=== PATIENT | female | born 1970 ===

== ENCOUNTER 2019-07-27 12:03 | Emergency (ER) | payer SELFPAY ==
[~2019-07-27] VITALS: Ht 154.9 cm; Wt 81.8 kg
[2019-07-27] MEDS ORDERED: METF-960 PO (12:11)
[2019-07-27 12:27] LABS: GLUCOSE,POINT OF CARE 405 MG/DL (70-110)
[2019-07-27] MEDS ORDERED: SODIUM CHLORIDE 0.9% 1,000 ML IV ONE (13:15)
[2019-07-27 13:55] LABS: ANION GAP 9 mmol/L (8-16); CARBON DIOXIDE 26 mmol/L (22-29); CHLORIDE 98 mmol/L (98-107); CREATININE 0.78 mg/dL (0.60-1.30); POTASSIUM 4.1 mmol/L (3.5-5.1); SODIUM SERUM 133 mmol/L (136-145); UREA NITROGEN, BLOOD 11 mg/dL (7-18)
[2019-07-27 13:56] LABS: CALCIUM, TOTAL 8.3 mg/dL (8.8-10.5); GLOMERULAR FILTR. RATE CALC > 60 mL/min (>60)
[2019-07-27 14:01] LABS: GLUCOSE,RANDOM 437 mg/dL (70-110)
[2019-07-27] MEDS ORDERED: KETOROLAC TROMETHAMINE 30 MG/ML VIAL IVP ONE (14:15)
[2019-07-27] MEDS ORDERED: ONDANSETRON HCL 4 MG/2 ML VIAL IVP ONE (14:15)
[2019-07-27] MEDS ORDERED: INSULIN REGULAR, HUMAN 100 UNITS/ML IVP ONE ×2 (14:15→15:45)
[2019-07-27 14:22] LABS: BASOPHILS % (AUTO) 0.6 % (0.0-2.0); EOSINOPHILS % (AUTO) 1.2 % (1.0-6.0); HEMATOCRIT 48.9 % (36-46); HEMOGLOBIN 16.2 g/dL (12.0-16.0); LYMPHOCYTES # (AUTO) 2.1 K/uL (1.0-4.8); LYMPHOCYTES % (AUTO) 22.8 % (22.0-44.0); MEAN CORPUSCULAR HEMOGLOBIN 30.4 pg (26.0-34.0); MEAN CORPUSCULAR HGB CONC 33.2 G/dL (31.0-37.0); MEAN CORPUSCULAR VOLUME 92 fL (80-100); MONOCYTES # (AUTO) 0.7 K/uL (0.1-1.0); MONOCYTES % (AUTO) 7.3 % (2.0-9.0); NEUTROPHILS # (AUTO) 6.4 K/uL (1.8-7.7); NEUTROPHILS % (AUTO) 68.1 % (40.0-70.0); PLATELET COUNT (AUTO) 264 K/uL (150-450); RED BLOOD CELL COUNT(AUTO) 5.34 MIL/uL (4.00-5.20); RED CELL DISTRIBUTION WIDTH 12.9 % (11.5-14.5)
[2019-07-27 17:01] VITALS: BP 133/87
[2019-07-27 19:21] LABS: GLUCOSE,POINT OF CARE 338 MG/DL (70-110)
[2019-07-27 19:21] LABS: GLUCOSE,POINT OF CARE 330 MG/DL (70-110)
== END 2019-07-27 17:05 | disposition home or self-care (01) ==
LOC: EMS 12:05
DX: E11.65 Type 2 diabetes mellitus with hyperglycemia (principal); Z79.84 Long term (current) use of oral hypoglycemic drugs
CPT/HCPCS: 36415; 80048; 81002; 82962; 85025; 93005; 96361; 96374; 96375; 96376; 99284; J1815; J1885; J2405; J7030